=== PATIENT | female | born 1975 | race Caucasian/White ===

== ENCOUNTER 2017-12-05 03:00 | Observation (INO) | payer BC ==
[~2017-12-05] VITALS: Ht 160 cm; Wt 61.0 kg
[2017-12-05] MEDS ORDERED: SODIUM CHLORIDE 0.9% 1,000 ML IV ONE (04:13)
[2017-12-05] MEDS ORDERED: ONDANSETRON 2MG/ML, 2ML IVPush PRN ×2 (04:30→05:00)
[2017-12-05] MEDS: SODIUM CHLORIDE 0.9% 1,000 ML IV SCH ×3 (04:56→20:47)
[2017-12-05] MEDS ORDERED: ACETAMINOPHEN 325 MG TABLET PO PRN (05:00)
[2017-12-05] MEDS: METOPROLOL TARTRATE 25 MG TABLET PO SCH ×2 (06:00→17:59)
[2017-12-05] MEDS ORDERED: METOPROLOL TARTRATE 25 MG TABLET ONE (06:19)
[2017-12-05 11:20] VITALS: BP 131/88
[2017-12-05 14:00] VITALS: BP 126/78
[2017-12-05 21:07] VITALS: BP 116/77
[2017-12-06 04:57] VITALS: BP 115/70
[2017-12-06] MEDS: METOPROLOL TARTRATE 25 MG TABLET PO SCH (05:00)
[2017-12-06] MEDS: SODIUM CHLORIDE 0.9% 1,000 ML IV SCH ×2 (05:03→12:56)
[2017-12-06 08:01] VITALS: BP 118/82
[2017-12-06] MEDS ORDERED: METO25TA35 PO (14:14)
[2017-12-06] MEDS ORDERED: FLEC100T PO (14:14)
== END 2017-12-06 16:05 | disposition home or self-care (01) ==
LOC: ED 03:54 → EDIP 04:13 → INTOOBSV 04:13 → 5SO 10:31
PROVIDERS: ADMIT Hospitalist; ATTEND Hospitalist
DX: I48.0 Paroxysmal atrial fibrillation (principal); R55 Syncope and collapse; F12.90 Cannabis use, unspecified, uncomplicated
CPT/HCPCS: 78452; 93005; 93017; 93306; 96360; 96361; 99285; A9502; C9898; G0378; J7030